=== PATIENT | male | born 1950 | race Caucasian/White ===

== ENCOUNTER → 2017-08-27 | Outpatient (CLI) | payer OTHER ==
[~2017-08-27] MED LIST: ALLO300T2 PO; AMLO-114 PO; APR25 PO; ASPI81TA28 PO; ASTA1CAP4 PO; CLOP1TAB15 PO; COLC0.6T54 PO; HYDR-4079 PO; LISI-787 PO; LPT/40 PO; LYCOCAP2 PO; MCR5 PO; METO50TA16 PO; MOVE FREE PO; MULT-267 PO; NXM/40 PO; PRED-301 PO; REGADENOSON 0.4 MG/5 ML SYR ONE; SILD100T PO; ZEAX5POW PO; [UNRECOGNIZED DRUG - CODE] PO; [UNRECOGNIZED DRUG - CODE] PO; [UNRECOGNIZED DRUG - OTHER] PO; [UNRECOGNIZED DRUG - REMARK] PO
--- NOTE | 2017-08-28 00:32 | MYOCARDIAL PERFUSION SCAN ---
NAME OF STUDY: 1-day Nuclear Medicine Technetium-99M Cardiolite myocardial perfusion scan. CLINICAL HISTORY: The patient has a known history of coronary artery disease and has an intracoronary stent. The patient has noticed an atypical chest pain syndrome. COMPARISON: None. TECHNIQUE: For the stress portion of the study, 32.4 mCi of Technetium 99 m Cardiolite IV was injected at 1:20 p.m. on August 27, 2017. 30 minutes following the injection, imaging of the heart was performed in multiple projection. For the rest portion of the study, 11 mCi of Technetium 99 m Cardiolite was injected IV at 11:30 a.m. One hour following the injection, imaging of the heart was performed in the same projections. For the stress portion of the study, 0.4 mg of Lexiscan was injected intravenously as per protocol. Baseline EKG notes sinus rhythm with PVCs and old anteroseptal myocardial infarction pattern. There are no ST segment changes seen. The patient did not experience the chest discomfort; however, did note some dyspnea with the infusion. Following the study, the patient was hemodynamically stable without complaints. FINDINGS: The short axis, vertical long axis, horizontal long axis images were reviewed in detail. There is normal tracer uptake at both stress and rest, thus excluding a prior myocardial infarction or stress induced myocardial ischemia. The left ventricle demonstrates normal systolic function without wall motion abnormality. An estimated left ventricular ejection fraction is 62%. IMPRESSION: 1. No scintigraphic evidence of a prior myocardial infarction or stress induced myocardial ischemia. 2. No Lexiscan induced chest pain. 3. No Lexiscan induced EKG change 4. Normal left ventricular ejection fraction of 62% without wall motion abnormalities.
== END | disposition home or self-care (01) ==
LOC: C.NUCL 11:00
PROVIDERS: ATTEND Physician Assistant
DX: R07.9 Chest pain, unspecified (principal); Z95.9 Presence of cardiac and vascular implant and graft, unspecified; E78.5 Hyperlipidemia, unspecified; I10 Essential (primary) hypertension; I25.10 Atherosclerotic heart disease of native coronary artery without angina pectoris